=== PATIENT | male | born 1975 | race Two or more races ===

== ENCOUNTER 2024-11-03 11:21 | Emergency (ER) | payer OTHER ==
[~2024-11-03] VITALS: Ht 175.3 cm; Wt 85.0 kg
[2024-11-03 11:52] VITALS: BP 146/79; PULSE 81; RESP 5; TEMP 97.8; O2SAT 9
[2024-11-03] MEDS ORDERED: NEOM10SO24 AD (12:37)
[2024-11-03] MEDS: NEOMYCIN/POLYMYXIN B/HYDROCORT 10 ML OTIC SOLUTION AD ONE (13:28)
== END 2024-11-03 13:29 | disposition home or self-care (01) ==
LOC: EMS 11:21
DX: H60.91 Unspecified otitis externa, right ear (principal)
CPT/HCPCS: 99283